=== PATIENT | female | born 1990 | race African-American/Black ===

== ENCOUNTER 2019-02-06 15:51 | Outpatient (CLI) | payer BC ==
--- NOTE | 2019-02-06 16:06 | RAD ---
XR Foot Lt 3 View STANDARD INDICATION: Foot pain COMPARISON: None. FINDINGS: Bones: No acute fracture identified. Joints: Joints spaces appear preserved. Lisfranc alignment: Lisfranc alignment appears within normal limits. Soft tissues: No soft tissue injury demonstrated. No radiographic foreign body demonstrated. IMPRESSION: No acute osseous abnormality.
== END 2019-02-06 15:52 | disposition home or self-care (01) ==
LOC: BICRAD 15:51
PROVIDERS: ATTEND Family Medicine
DX: M79.672 Pain in left foot (principal)